=== PATIENT | female | born 1965 | race Two or more races ===

== ENCOUNTER 2023-08-02 10:56 | Outpatient (AMB) | payer OTHER, SELFPAY ==
[2023-08-02 12:19] VITALS: BP 134/88; PULSE 97; TEMP 37.5; O2SAT 95; BMI 45.9
--- NOTE | 2023-08-02 12:19 | AM.OFFWIN_ITS ---
Intake Vital Signs 08/02/23 12:19 Height 4 ft 9 in Weight 212 lb BMI 45.9 BP 134/88 Blood Pressure Location Rt brachial Position Sitting Pulse 97 Pulse Source Pulse Oximeter Temp 99.5 F Temp Source Oral Pulse Oximetry (%) 95 Oxygen Delivery Method Room Air Intake Visit Reasons: [employer], headache, cough (masked) Intake Note: Pt is here today c/o headache and a cough Allergies Penicillins Adverse Reaction (Verified 08/02/23 12:25) Unknown HPI [employer], headache, cough (masked) HPI Details Patient is a 58-year-old female comes to the walk-in clinic complaining of a week of upper respiratory infection symptoms including runny nose, postnasal drip, cough and now developing frontal headache, malaise and low-grade fever as well as persistent cough. She did not check for COVID at home. She denies current chills, weakness or dizziness, myalgias, nausea vomiting or diarrhea, fast heart rate, sore throat shortness of breath or chest pain, or other significant associated symptoms. Review of Systems Const All systems reviewed & are unremarkable except as noted in HPI and below Physical Exam Vital Signs: Last Vital Signs Temp 99.5 F 08/02/23 12:19 Pulse 97 08/02/23 12:19 BP 134/88 08/02/23 12:19 Pulse Ox 95 08/02/23 12:19 Oxygen Delivery Method Room Air 08/02/23 12:19 BMI result Body Mass Index 45.9 Const General: cooperative, no acute distress, alert, awake, Physically active and well groomed; No anxious, diaphoretic, intoxicated appearing, poor hygiene or tired appearing Nutritional Appearance: average body habitus Orientation/consciousness: patient oriented x3 Limitations: no limitations HEENT Head: Yes normal to inspection, Yes normocephalic and Yes atraumatic Ears: hearing grossly normal bilaterally, external ears normal and Abnormal EAC present excessive cerumen General nose exam: Normal external nose present, Normal nares present, Normal nasal mucous membranes and turbinates present, Normal septum present and No nasal discharge present Face and sinus: Yes face symmetric, No erythema, No edema, No fluctuance, No maxillary instability and Yes sinus tenderness Mouth: Normal oral and palatal mucosa present, lip normal and tongue normal Throat: Yes posterior oropharynx normal, No peritonsillar mass, No postnasal drainage, No uvular edema and No cobblestoning Eyes General: appearance normal, both eyes and all related structures Neck Neck: Yes normal visual inspection, Yes no lymphadenopathy, Yes trachea midline, Yes supple and No anterior neck swelling Resp Effort & Inspection: normal respiratory effort, able to speak in complete sentences, no audible wheezes, no cough, no grunting, not labored, no nasal flaring, no retractions and symmetric chest movement Auscultation: clear to auscultation bilaterally, no crackles, no rales, no rhonchi, no wheezes, lung sounds not diminished and No rub present Cardio Rate: regular rate Skin Other: Good color, warm and dry Neuro General: patient oriented x3 Psych Appearance: grossly normal Mental Status: mental status grossly normal Speech and movement: Normal speech and movement present Affect: normal affect Attitude: cooperative Thought process: Normal thought process present Insight: Good insight present (Psych) Judgement: Good judgement present (Psych) Assessment & Plan Assessment & Plan (1) Sinusitis: Code(s): J32.9 - Chronic sinusitis, unspecified Qualifiers: Sinusitis location: frontal Chronicity: acute Recurrence: non- recurrent Qualified Code(s): J01.10 - Acute frontal sinusitis, unspecified Plan: Patient is a 58-year-old female with likely viral syndrome. She did not check for COVID yet, so flu COVID and RSV are pending. I think she has developed a sinus infection at this point, due to frontal facial pressure and developing low-grade fever after a week of symptoms. I will start her on doxycycline and for this, as she has side effects with amoxicillin. This should of her also cover possible ear infection, which was not visible today due to cerumen impactions bilaterally. as she was already in distress, evacuation of the cerumen was not done today. I will also start her on a moderate course of prednisone to help with the inflammation and pressure in her face as well as her complaint of intermittent cough. She can also trial Tessalon Perles. She should follow up if symptoms persist or worsen. Orders: Orders SARS-CoV2/FLU/RSV 08/02/23 R05.9 - Cough, unspecified Medications: New prednisone 40 mg (2 x 20 mg) PO DAILY 10 tabs 0RF 5 days doxycycline hyclate 100 mg PO BID 14 tabs 0RF 7 days benzonatate 200 mg PO BID-TID PRN 30 caps 0RF cough 5 days Coding Level of Care Code New Pt Level 4 (67667) Diagnoses Acute non-recurrent frontal sinusitis J01.10 Sinusitis location: frontal Chronicity: acute Recurrence: non-recurrent
== END 2023-08-02 13:04 | disposition home or self-care (01) ==
PROVIDERS: Visit Provider Physician Assistant Medical
DX: J01.10 Acute frontal sinusitis, unspecified (principal)
CPT/HCPCS: 99051; 99204

== ENCOUNTER 2023-08-02 13:50 | Outpatient (REF) | payer OTHER, SELFPAY ==
[2023-08-02 14:33] LABS: Influenza A PCR NEGATIVE (Negative); Influenza B PCR NEGATIVE (Negative); Resp Syncy Virus RNA Qual PCR NEGATIVE (Negative); SARS COV2 PCR INHOUSE NEGATIVE (Negative)
== END 2023-08-02 13:51 | disposition home or self-care (01) ==
LOC: HO.HMGCLNP 13:50
PROVIDERS: Visit Provider Physician Assistant Medical
DX: Z11.52 Encounter for screening for COVID-19 (principal); Z20.822 Contact with and (suspected) exposure to COVID-19; R05.9 Cough, unspecified
CPT/HCPCS: 0241U